=== PATIENT | male | born 1955 | race Caucasian/White ===

== ENCOUNTER 2025-05-14 12:58 | Outpatient (AMB) | payer MEDICARE, MEDICAID, SELFPAY ==
--- NOTE | 2025-05-14 12:59 | A.OFFVIS_ITS ---
Vital Signs 05/14/25 13:00 Height 5 ft 9 in Weight 252 lb BMI 37.2 BP 144/76 H Blood Pressure Location Lt brachial Position Sitting Respiration 16 Pulse 73 Pulse Source Pulse Oximeter Pulse Oximetry (%) 96 Oxygen Delivery Method Room Air Intake Visit Reasons: Osteomyelitis unspecified Sheepskin Pickler Required: No Allergies aspirin Allergy (Intermediate, Verified 05/14/25 13:03) Itching doxycycline Allergy (Intermediate, Verified 05/14/25 13:03) Itching oxycodone Allergy (Intermediate, Verified 05/14/25 13:03) Itching Penicillins Allergy (Intermediate, Verified 05/14/25 13:03) Itching Medication List - Last Reconciled 05/14/25 by Katelyn Baker LPN acetaminophen 650 mg PO QID PRN albuterol sulfate 90 mcg/actuation (Ventolin HFA) 2 puffs inhalation QID PRN amiodarone 200 mg PO DAILY apixaban 5 mg PO BID ascorbic acid (vitamin C) mg PO celecoxib (Celebrex) 100 mg PO BID duloxetine 30 mg PO DAILY fluticasone furoate-vilanterol 100-25 mcg/dose (Breo Ellipta) 1 inh inhalation DAILY gabapentin 600 mg PO TID losartan 50 mg PO DAILY mesalamine 800 mg PO BID metoprolol succinate ER 50 mg PO DAILY montelukast 10 mg PO BEDTIME morphine 7.5 mg PO TID PRN morphine ER (MS Contin) 15 mg PO Q12H omeprazole 20 mg PO DAILY rosuvastatin 40 mg PO DAILY solifenacin (Vesicare) 10 mg PO DAILY tamsulosin 0.8 mg PO BEDTIME HPI HPI Osteomyelitis unspecified: Details: History of Present Illness The patient is a 70-year-old male presenting with chronic low back pain. The pain is described as aching and stabbing, with an intensity of 10/10, and radiates down the legs. The patient reports that the pain has been present for a long time but has worsened over the past two years, particularly in the last six months. The patient underwent back surgery in 2016, which did not resolve the pain. He has been managing the pain with morphine, taking 15 mg as needed, but this is not considered a long-term solution. The patient also has a history of osteomyelitis of the spine, which developed following intravascular seeding of a urinary tract infection. The blood infection was secondary to a kidney infection caused by prostate issues and urinary retention. The patient completed a course of antibiotics post- hospitalization but may require lifelong antibiotics due to the persistent infection. He is currently on antibiotics. Pain Description - Onset: Long-standing, worsened over the past two years, particularly in the last six months - Quality: Aching and stabbing - Intensity: 10/10 - Location: Lower back, radiating down the legs - Exacerbating factors: Activities and inability to sleep - Management: Morphine 15 mg as needed Physical Exam - Appears afebrile. - Alert and oriented. - Mood and affect appropriate. - Follows and participates in conversation appropriately. - Respiratory effort is unlabored. - Able to transition from sit to stand unassisted. - Ambulates with bilaterally normal heel strike and toe off. - Able to stand and walk on toes and heels. Results Pain Management - Affect: Pain significantly impacts daily activities and sleep - Analgesia: Currently using morphine 15 mg, pain level at 10/10 - Adverse Effects: None discussed - Activities of Daily Living: Severely limited due to pain - Aberrant Drug Related Behaviors: None discussed [facility] Medical History (Updated 05/29/25 @ 10:32 by Arun Andrade MD) Polyneuropathy Lumbosacral radiculitis Low back pain Asthma Hyperglycemia Hyperlipemia Dysuria Anxiety Allergic rhinitis Physical Exam Vital Signs: Last Vital Signs Pulse 73 05/14/25 13:00 Resp 16 05/14/25 13:00 BP 144/76 H 05/14/25 13:00 Pulse Ox 96 05/14/25 13:00 Oxygen Delivery Method Room Air 05/14/25 13:00 BMI result Body Mass Index 37.2 Assessment & Plan Assessment & Plan (1) Stage 3 chronic kidney disease: Code(s): N18.30 - Chronic kidney disease, stage 3 unspecified Category: Medical (2) Lumbosacral radiculitis: Code(s): M54.17 - Radiculopathy, lumbosacral region Category: Medical (3) Osteomyelitis of spine: Code(s): M46.20 - Osteomyelitis of vertebra, site unspecified Category: Medical Plan Plan - Due to lack of candidacy for interventional treatment at this time, continue current morphine regimen per primary care as it provides some relief, recognizing it is not an ideal long-term solution. - Consideration of alternative pain management strategies once the infection is resolved. Will need clearance from ID doctor before any interventional therapy can be undertaken. - Lifelong antibiotics may be necessary due to persistent osteomyelitis. - Follow-up with infectious disease specialist for ongoing management of osteomyelitis. Patient was informed and verbally consented to the use of an ambient scribe for clinic note documentation during this visit. Discussion Notes I discussed with the patient that due to the current spinal infection, interventional procedures such as steroid injections or device implantation are not feasible at this time. We agreed that continuing the current morphine regimen is necessary for pain management, although it is not ideal for long-term use. I advised the patient to follow up with their infectious disease specialist to clear the osteomyelitis and obtain clearance for interventional treatment once its safe. Patient Instructions - Continue taking morphine as prescribed for pain relief. - Follow up with your infectious disease doctor for ongoing management of the spinal infection. - Report any new or worsening symptoms to your healthcare provider immediately. Coding Level of Care Code New Pt Level 4 (55736) Diagnoses Stage 3 chronic kidney disease N18.30 Lumbosacral radiculitis M54.17 Osteomyelitis of spine M46.20
[2025-05-14 13:00] VITALS: BP 144/76; PULSE 73; RESP 16; O2SAT 96; BMI 37.2
--- OUTSIDE RECORDS SUMMARY | 2025-05-14 14:19 | XMS_ITS | Encounter Summary ---
Author Organization [facility] Address [address] [place] [address] Care Team Providers Care Marble Cleaner Name Role Phone Lyn Kong MD Primary Care Provider [phone] Encounter Details Date Type Department Care Team (Late st Contact Info) Description 02/04/2025 Lab Requisition [facility] - Main Lab [address] [facility] [place] [address] Tariq Pappas MD [address] [place] [address] Encounter for other general examination Social History Tobacco Use Types Packs/Day Years Used Date Smoking Tobacco: Never Smokeless Tobacco: Never Alcohol Use Standard Drinks/Week Comments Never 0 (1 standard drink = 0.6 oz pur e alcohol) Housing Instability Answer Date Recorde d Are you worried that in the next 2 months you may not have stable housing? No 11/17/2024 Food Access & Nutrition Answer Date Rec orded Do you have access to a vari ety of food including fruits and vegetables? No 11/17/2024 Health Literacy Answer Date Recorded How often do you need to hav e someone help you when you read instructions, pamphlets, or other written material from your doctor or pharmacy? Never 11/17/2024 Caregiver: How often do you need to have someone help you when you read instructions, pamphlets, or other written material from your doctor or pharmacy? Not on file 11/17/2024 Financial Risk Answer Date Recorded How hard is it for you to pa y for the very basics like food, housing, medical care, and air conditioning / heating? Not very hard 11/17/2024 Transportation Answer Date Recorded Has the lack of transportati on kept you from meetings, work, or from getting things needed for daily living? No Has the lack of transportati on kept you from medical appointments or from getting medications? No 11/17/2024 Social Isolation Answer Date Recorded How often do you feel lonely or isolated from th ose around you? Never 11/17/2024 Food Risk Answer Date Recorded Within the past 12 months we worried whether our food would run out before we got money to buy more. Never true 11/17/2024 Within the past 12 months th e food we bought just didn't last and we didn't have money to get more. Never true 11/17/2024 Dependent Care Answer Date Recorded Do you need help finding or paying for care for your loved ones. For example, teacher early childhood development or elderly care for an older adult? No 11/17/2024 Education Answer Date Recorded Do you think completing more education or training, like finishing a GED, going to college, or learning a trade, would be helpful for you? N/A 11/17/2024 Employment and Income Answer Date Recor ded During the last four weeks, have you been actively looking for work? No 11/17/2024 Living Situation Answer Date Recorded What is your living situation? 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 Not on file Not on file Not on file documented as of this encounter Plan of Treatment Not on file documented as of this encounter Procedures Procedure Name Priority Date/Time Associated Diagnosis Comments VANCOMYCIN, TROUGH Routine 02/04/2025 6: 56 AM EDT Encounter for other general examination documented in this encounter Results * Vancomycin, trough (02/04/2025 6:56 AM EDT) Vancomycin Trough 12.8 10.0 - 20.0 mcg/mL LAB CHEMISTRY METHOD 02/04/2025 10:19 AM EDT [facility] Blood Venous blood specimen / Unknown Venipuncture / Unknown 02/04/2025 6:56 AM EDT 02/04/2025 9:12 AM EDT us Tariq Pappas MD LAB BLOOD ORDERABLES Final Res ult [facility] [address] [place] [address], documented in this encounter Visit Diagnoses Diagnosis Encounter for other general examination documented in this encounter Additional Health Concerns Infection Onset Date Last Indicated Resolved Time Respiratory Rule-Out 03/13/2025 03/13/2025 025 2:28 AM EDT COVID-19 Rule-Out 03/13/2025 03/13/2025 03/13/2025 2:28 AM EDT documented as of this encounter Care Teams Marble Cleaner Relationship Specialty Start Date End Date Lyn Kong MD [address] [place] [phone] PCP - General Family Medicine 12/07/24 documented as of this encounter
== END 2025-05-14 13:50 | disposition home or self-care (01) ==
PROVIDERS: PCP Family Medicine; Visit Provider Internal Medicine
DX: N18.30 Chronic kidney disease, stage 3 unspecified (principal); M54.17 Radiculopathy, lumbosacral region; M46.20 Osteomyelitis of vertebra, site unspecified
CPT/HCPCS: 99204

== ENCOUNTER → 2025-05-14 12:58 | Outpatient (BNVA) | payer MEDICARE, MEDICAID, SELFPAY | PROVIDERS: PCP Family Medicine; Visit Provider Internal Medicine | DX: M54.59 Other low back pain (principal); M54.17 Radiculopathy, lumbosacral region; M46.20 Osteomyelitis of vertebra, site unspecified; N18.30 Chronic kidney disease, stage 3 unspecified; Z79.891 Long term (current) use of opiate analgesic; Z79.2 Long term (current) use of antibiotics | CPT/HCPCS: 99202 ==